=== PATIENT | male | born 1995 | race Two or more races ===

== ENCOUNTER 2020-10-26 14:57 | Emergency (ER) | payer SELFPAY ==
[~2020-10-26] VITALS: Ht 154.9 cm; Wt 103.4 kg
[2020-10-26 15:55] VITALS: BP 119/61
[2020-10-26] MEDS ORDERED: IBUPROFEN 800 MG TAB PO ONE (16:15)
[2020-10-26] MEDS ORDERED: METHOCARBAMOL 500 MG TAB PO ONE (16:15)
== END 2020-10-26 17:35 | disposition home or self-care (01) ==
LOC: ER 14:57 → EDBD 14:57 → ER 17:35
DX: S13.9XXA Sprain of joints and ligaments of unspecified parts of neck, initial encounter (principal); V49.9XXA Car occupant (driver) (passenger) injured in unspecified traffic accident, initial encounter; Y93.89 Activity, other specified; Y92.89 Other specified places as the place of occurrence of the external cause; Y99.8 Other external cause status
CPT/HCPCS: 70450; 72070; 72125